=== PATIENT | female | born 1990 | race African-American/Black ===

== ENCOUNTER 2021-06-14 09:23 | Emergency (ER) | payer OTHER, SELFPAY ==
[2021-06-14 09:37] VITALS: BP 133/93; PULSE 83; RESP 16; TEMP 36.5; O2SAT 100
--- NOTE | 2021-06-14 09:49 | ED.EYEPROB ---
HPI - Eye Problem General Chief complaint: Eye Problems Stated complaint: Eye Pain Time Seen by Provider: 06/14/21 09:49 Source: patient and RN notes reviewed Mode of arrival: ambulatory Limitations: no limitations History of Present Illness HPI Narrative: 30-year-old female presents to the [facility] with eye redness that started yesterday. Patient states that she had eyelashes put on over the weekend. Does normally wear contacts, has not worn in a couple of days. MD chief complaint: eye redness Related Data Home Medications Medication Instructions Recorded Confirmed No Home Medications 06/14/21 06/14/21 Allergies Allergy/AdvReac Type Severity Reaction Status Date / Time No Known Allergies Allergy Verified 06/14/21 09:48 Review of Systems Review of Systems: All systems reviewed & are unremarkable except as noted in HPI and below Constitutional: Constitutional: Reports no additional constitutional complaints, Denies chills and Denies fever(s) Eyes: Eyes: Reports as per HPI, Denies change in vision and Denies photophobia Comments: Eye redness ENT: Reports system reviewed and no additional complaints, except as documented Cardiovascular: Cardiovascular: Reports no additional cardiovascular complaints Respiratory: Respiratory: Reports no additional respiratory complaints Musculoskeletal: Musculoskeletal: Reports no additional musculoskeletal complaints Integumentary/Breasts: Skin/Breast: Reports system reviewed and no additional complaints, except as docu Neurologic: Reports system reviewed and no additional complaints, except as documented Psychiatric: Psychiatric: Reports no additional psychiatric complaints Allergic/Immunologic: Allergic/Immunologic: Reports no additional allergic/immunologic complaints PMFSH Past Medical History Medical History (Updated 06/14/21 @ 17:13 by Rolanda Dodge) No significant medical problems Surgical History Surgical History (Updated 06/14/21 @ 17:13 by Rolanda Dodge) No significant past surgical history Comments At the time of my signature, I reviewed and agree with the nursing past medical, surgical, social, and family history. There is no relevant family history pertinent to the patient complaint. Exam Const: General: no acute distress and alert Nutritional Appearance: well nourished Orientation/consciousness: patient oriented x3 HENMT: Head: normal to inspection Ears: external ears normal, TM's normal bilaterally and EAC's normal Eyes: Visual Jones: normal visual jones by confrontation Eyelids: eyelids normal Conjunctivae: conjunctivae normal Cornea: corneas abnormal bilateral other (redness without pain or drainage) Pupils: Equal, round and reactive pupils present EOM: EOMs intact bilaterally Direct Ophthalmoscopy: no photophobia and No photophobia Neck: Neck: normal visual inspection and no lymphadenopathy Chest: Chest palpation & inspection: normal inspection of the chest Resp: Effort & Inspection: normal respiratory effort and no use of accessory muscles Auscultation: clear to auscultation bilaterally Cardio: Rate: regular rate Rhythm: regular rhythm : General: Yes no CVA tenderness Back/Spine/Pelvis: Back: no CVA tenderness Skin: General skin exam: normal color Rashes: no rashes Neuro: General: patient oriented x3, moves all extremities, no meningeal signs and no focal motor deficits Speech: normal speech Gait exam (Neuro): Normal gait present Extrem: General: normal to inspection Psych: Appearance: grossly normal and well kempt Mental Status: mental status grossly normal Affect: normal affect Attitude: cooperative Thought content: Yes Normal thought content present Course Course Emergency Course: Discharge instructions reviewed with patient, as well as provided in writing per nursing staff. The instructions also include specific and strict return/GO TO THE ER as well as f/u information. All questions have been an
== END 2021-06-14 10:12 | disposition home or self-care (01) ==
PROVIDERS: Emergency Provider Nurse Practitioner
DX: H57.89 Other specified disorders of eye and adnexa (principal); H57.10 Ocular pain, unspecified eye; T78.40XA Allergy, unspecified, initial encounter
CPT/HCPCS: 99212; G0463

== ENCOUNTER 2021-09-24 18:09 | Emergency (ER) | payer OTHER, SELFPAY ==
[2021-09-24 18:18] VITALS: BP 150/75; PULSE 96; RESP 16; TEMP 37.4; O2SAT 100
--- NOTE | 2021-09-24 18:19 | ED.GENADULT ---
HPI - General Adult General Chief complaint: Upper Respiratory Infection Stated complaint: cough Source: patient Mode of arrival: ambulatory Limitations: no limitations History of Present Illness HPI narrative: Patient is a 31-year-old -[place] female who presents to the urgent care via POV for evaluation of upper respiratory symptoms that have been present for approximately 4 to 5 days. She reports a dry cough and myalgias. Denies taking OTC meds for symptoms. Nothing improves or worsen symptoms. Denies known exposure to sick contacts. Patient states she is fully vaccinated gets Covid. She has not received influenza vaccine this season. Related Data Home Medications Medication Instructions Recorded Confirmed albuterol mcg INHALATION 09/24/21 Allergies Allergy/AdvReac Type Severity Reaction Status Date / Time No Known Allergies Allergy Verified 09/24/21 18:19 Review of Systems Review of Systems: Denies history of COPD, bronchitis, asthma, and pneumonia. Denies current/past tobacco use. Pertinent negatives: fever, sweats, chills, change in appetite, fatigue, skin color changes, headache, nasal congestion/discharge, dizziness, lymphadenopathy, sinus problems, ear pain/drainage, chest pain, heart murmurs, heart palpitations, shortness of breath, wheezing, cyanosis, hemoptysis, hoarseness, orthopnea, pleuritic pain, nausea, vomiting, diarrhea PMFSH Past Medical History Medical History No significant medical problems Surgical History Surgical History No significant past surgical history Comments I have reviewed and agree with the patient's past medical, surgical, social, and family hx as documented by the RN. There is no relevant family history pertinent to the presenting complaint. Exam Narrative: GENERAL: Well-appearing, well-nourished, and in no acute distress. HEAD: Normocephalic, atraumatic. No sinus tenderness or facial swelling appreciated. EYES: PERRLA and EOMI. No evidence of erythema, swelling, or drainage. ENT: Bilateral external ears and ear canals normal. Bilateral TMs are normal.No TM perforation. Nares clear, no rhinorrhea or epistaxis. Bilateral turbinates without erythema/ swelling. Mucous membranes moist and pink. Uvula is midline without erythema and swelling. No evidence of petechial rash, cobblestoning, lesions, ulcers, erythema, swelling, exudates, peritonsillar abscess, tenting, or drooling. Breath odor and voice normal. NECK: Supple. No Lymphadenopathy or nuchal rigidity appreciated. CHEST: Bilateral lung jones are clear to auscultation. No respiratory distress. Moderate dry cough appreciated on examination HEART: Regular rate and rhythm. No murmur, gallop, or rub heard. EXTREMITIES: Normal range of motion. No edema. SKIN: Warm, dry, no rash. NEURO: No focal deficits. Alert and oriented x3. Course Vital Signs Vital signs: Vital Signs Temperature 99.4 F 09/24/21 18:18 Pulse Rate 96 09/24/21 18:18 Respiratory Rate 16 09/24/21 18:18 Blood Pressure 150/75 H 09/24/21 18:18 Pulse Oximetry 100 09/24/21 18:18 Temperature 99.4 F 09/24/21 18:18 Pulse Rate 96 09/24/21 18:18 Respiratory Rate 16 09/24/21 18:18 Blood Pressure 150/75 H 09/24/21 18:18 Pulse Oximetry 100 09/24/21 18:18 Due to an elevated blood pressure, I had a detailed discussion with the patient and/or guardian regarding the need for follow-up with their primary care provider within the next 3-4 days. Patient verbalized understanding and agreed. Medical Decision Making Differential Diagnosis Differential Diagnosis: Allergic rhinitis, ABRS, acute viral sinusitis, strep pharyngitis, nasopharyngitis, bronchitis, pneumonia, AOM, otitis externa, viral URI, influenza, covid-19 Medical Records Medical records reviewed: Yes I reviewed the external patient's medical records. Vital
== END 2021-09-24 19:18 | disposition home or self-care (01) ==
PROVIDERS: Emergency Provider Nurse Practitioner Family
DX: J06.9 Acute upper respiratory infection, unspecified (principal); Z20.822 Contact with and (suspected) exposure to COVID-19; J45.909 Unspecified asthma, uncomplicated
CPT/HCPCS: 87426; 87804; 99213; C9803; G0463

== ENCOUNTER 2021-12-24 08:15 | Emergency (ER) | payer OTHER, SELFPAY ==
[2021-12-24 08:29] VITALS: BP 124/90; PULSE 95; RESP 16; TEMP 37.1; O2SAT 100
--- NOTE | 2021-12-24 08:42 | ED.EAR ---
HPI - Ear Problem General Chief complaint: Ear Stated complaint: Clogged Ears Time Seen by Provider: 12/24/21 08:42 Source: patient Mode of arrival: ambulatory Limitations: no limitations History of Present Illness HPI Narrative: Mulu Hodge is a 31 yo female with PMH asthma complaining of bilateral ear muffling; she has been using Debrox to remove wax from her ears. She states she has been aggressively cleaning her ears for days after use of debrox Related Data Home Medications Medication Instructions Recorded Confirmed albuterol sulfate 2 puff INHALATION QID PRN 12/24/21 12/24/21 Allergies Allergy/AdvReac Type Severity Reaction Status Date / Time No Known Allergies Allergy Verified 09/24/21 18:19 Review of Systems Review of Systems: CONSTITUTIONAL: Denies fever, chills, sweats. EYES: Denies visual changes, redness, discharge. ENT: Denies rhinorrhea, congestion, sore throat, bilateral otalgia. States ear canals are tender to touch CARDIOVASCULAR: Denies chest pain, palpitations, edema. RESPIRATORY: Denies dyspnea, wheezing, cough GASTROINTESTINAL: Denies abdominal pain, nausea, vomiting, diarrhea. GENITOURINARY: Denies dysuria, hematuria, abnormal discharge SKIN: Denies rash or itching. NEUROLOGIC: Denies numbness, or focal weakness. PSYCHIATRIC: Denies anxiety or depression. [facility] Past Medical History Medical History Asthma Social History Social History (Updated 12/24/21 @ 08:50 by Cesilia Hare CNP) Smoking status: Never smoker Alcohol intake: current Comments At time of signature, I agree with nursing past medical, surgical, social and family history. There is no relevant family history pertinent to the presenting complaint. Exam Narrative: GENERAL: This is a well-nourished, well-developed patient, in mild distress. HEAD: normocephalic, atraumatic. EYES: Sclera clear/white. Vision is grossly intact. EARS: External ears normal, auditory canals erythema and without drainage, TMs normal on R, mildly obstructed on L. Hearing grossly intact. NOSE: External nose normal without nasal discharge, nares without redness, no rhinorrhea. THROAT: Mucous membranes moist, NECK: Neck supple, non-tender CARDIOVASCULAR: Regular rate and rhythm without murmurs, gallops, or rubs. RESPIRATORY: Clear to auscultation. Breath sounds equal bilaterally. No wheezes, rales, or rhonchi. GASTROINTESTINAL: Abdomen soft, SKIN: warm, intact with no suspicious lesions or rash, good texture and turgor. NEURO: awake, alert, and oriented to person, place and time. There were no obvious focal neurologic abnormalities. Steady gait EXTREMITIES: Normal range of motion. BACK: Nontender without deformity Course Course Emergency Course: Patient comes with bilateral muffling in ears On exam ears are very red from aggressive cleaning there is mild amount of wax on left ear but unable to tolerate manipulation Started on polymyxin eardrops for 5 days and then she is to use Debrox in left ear Level of Care: Express Care Visit Vital Signs Vital signs: Vital Signs Temperature 98.7 F 12/24/21 08:29 Pulse Rate 95 12/24/21 08:29 Respiratory Rate 16 12/24/21 08:29 Blood Pressure 124/90 12/24/21 08:29 Pulse Oximetry 100 12/24/21 08:29 Temperature 98.7 F 12/24/21 08:29 Pulse Rate 95 12/24/21 08:29 Respiratory Rate 16 12/24/21 08:29 Blood Pressure 124/90 12/24/21 08:29 Pulse Oximetry 100 12/24/21 08:29 Medical Decision Making Differential Diagnosis Differential Diagnosis: Otitis media versus otitis externa versus cerumen Vital Signs Vital Signs: Vital Signs Temperature 98.7 F 12/24/21 08:29 Pulse Rate 95 12/24/21 08:29 Respiratory Rate 16 12/24/21 08:29 Blood Pressure 124/90 12/24/21 08:29 Pulse Oximetry 100 12/24/21 08:29 Temperature 98.7 F 12/24/21 08:29 Pulse Rate 95 12/24/21 08:29 Respiratory
== END 2021-12-24 09:07 | disposition home or self-care (01) ==
PROVIDERS: Emergency Provider Nurse Practitioner
DX: H65.03 Acute serous otitis media, bilateral (principal); H61.22 Impacted cerumen, left ear; J45.909 Unspecified asthma, uncomplicated
CPT/HCPCS: 99213; G0463